=== PATIENT | female | born 1945 | race Caucasian/White ===

== ENCOUNTER → 2017-03-05 | Outpatient (CLI) | payer OTHER ==
[2014-05-08 14:30] VITALS: BP 186/81
--- NOTE | 2017-03-05 16:06 | RAD ---
Examination: Right knee, three views History: Bilateral knee pain, arthritis Findings: There is degenerative narrowing of articular compartments, especially the medial compartmen t. Marginal osteophyte is present. There is no evidence for fracture, dislocation or synovial effusio n. Impression: Osteoarthritis, especially involving the medial compartment. No acute component is identi fied. Reported By:
--- NOTE | 2017-03-05 16:09 | RAD ---
Examination: Left knee, three views History: Bilateral knee pain, arthritis. Findings: There is narrowing of patellar-femoral and medial compartments. Marginal osteophytes are pr ominent. There is no fracture or synovial effusion or osteolytic process identified. Impression: Osteoarthritis, distribution as noted. No acute features identified. Reported By:
== END ==
LOC: RAD 15:18
PROVIDERS: ATTEND Obstetrics & Gynecology Obstetrics
DX: M17.0 Bilateral primary osteoarthritis of knee (principal)
CPT/HCPCS: 73560

== ENCOUNTER 2020-10-13 04:58 | Inpatient (IN) ==
--- NOTE | 2020-10-13 05:14 | DR.SOBA ---
HPI Time Seen Time Seen by Provider: 10/13/20 05:09 HPI Comment HPI Comment: PATIENT WITH A HISTORY OF COPD, HYPERPARATHYROIDISM AND HYPOTHYROIDISM COMPLAINS OF INCREASING DYSPNEA AT REST, MARKED EXERTIONAL DYSPNEA, DENIES CHEST PAIN, DIAPHORESIS, COUGH, FEVER OR CHILLS. Complaints Chief Complaint Doctors Comments: DYSPNEA Reviewed Nurses Notes Reviewed: Yes Source History Provided: Patient Mode of Arrival Mode of Arrival: Wheelchair Duration Duration: Days Context Onset:: At Rest History of:: COPD Prehospital Care:: None PMH PMH Past Medical History: Hypothyroidism Past Surgical History: Yes ROS Review of Systems Constitutional: No Symptoms Reported Eyes: No Symptoms Reported ENTM: No Symptoms Reported Respiratoy: See HPI, Orthopnea and Short of Breath Cardiovascular: Palpitations Gastrointestinal/Abdominal: No Symptoms Reported Genitourinary: No Symptoms Reported Neurological: No Symptoms Reported Musculoskeletal: No Symptoms Reported Integumentary: No Symptoms Reported Hematologic/Lymphatic: No Symptoms Reported Endocrine: No Symptoms Reported Psychiatric: No Symptoms Reported All Other Systems: Reviewed and Negative PE Vital Signs Vitals: Temperature 97.5 F Pulse Rate 97 Respiratory Rate 14 Blood Pressure [Right Arm] 186/81 Blood Pressure [Left Arm] 164/72 Blood Pressure 149/74 O2 Sat by Pulse Oximetry 90 General Limitations: Physical Limitation General Appearance: Alert and In No Apparent Distress Head Head Exam: Normal Inspection and Atraumatic Eyes Eye exam: Normal Appearance, PERRL and EOMI Neck Neck Exam: Normal Inspection, Full ROM and Trachea Midline Chest Chest Inspection: Normal Inspection and Symmetric Chest Wall Rise Respiratory Respiratory Exam: Bilateral: Decreased Breath Sounds and Lower: Decreased Breath Sounds Cardiovascular Cardiovascular Exam: Tachycardia and Irregular Rhythm Abdominal Exam Abdominal Exam: Normal Inspection, Normal Bowel Sounds and Soft Extremities Extremities Exam: Edema (1+ ANKLE EDEMA) Back Back Exam: Normal Inspection and Full ROM Psychiatric Psychiatric Exam: Normal Affect and Normal Mood Skin Skin Exam: Warm and Dry MDM Differential Diagnosis Differential Diagnosis: CHF, COPD, Dysrhythmia and Pulmonary embolism COURSE Treatment Treatment: SALINE LOCK, PLACED ON TELEMETRY, XOPENEX 1.25MG AEROSOL, AFTER 2 SETS OF BLOOD CULTURES, ROCEPHIN 1GM IVPB, LASIX 40MG, LOPRESSOR 5MG IV, NO CHANGE IN VENTRICULAR RESPONSE ATRIAL FIBRILLATION, PLACED ON CARDIZEM 10MG IV BOLUS FOLLOWED BY INFUSION 10MG/HR Reevaluation 1st: Improved Consultation Call Returned: 07:00 Consultation Comments: FINDINGS DISCUSSED WITH DR TAPIA FOR ADMIT TO INPATIENT Critical Care Notes Total Time (mins): 30 Critical Diagnosis: NEW ONSET ATRIAL FIBRILLATION RVR Critical Interventions: IV CARDIZEM BOLUS 10MG FOLLOWED BY CARDIZEM INFUSION 10MG/HR ROR Labs Reviewed Laboratory Results Reviewed?: Yes Result Diagrams: 10/13/20 05:35 10/13/20 05:35 Laboratory: WBC 5.9 X10^3/uL (3.6-10.0) 10/13/20 05:35 RBC 4.39 X10^6/uL (3.5-5.4) 10/13/20 05:35 Hgb 12.8 g/dL (12.0-16.0) 10/13/20 05:35 Hct 37.4 % (36.0-47.0) 10/13/20 05:35 MCV 85.2 fL (80.0-100.0) 10/13/20 05:35 MCH 29.1 pg (27.0-34.0) 10/13/20 05:35 MCHC 34.2 g/dL (33.0-35.0) 10/13/20 05:35 RDW 14.0 % (11.6-16.5) 10/13/20 05:35 Plt Count 269 X10^3/uL (150.0-450.0) 10/13/20 05:35 MPV 8.2 fL (7.4-11.0) 10/13/20 05:35 Neut % (Auto) 50.0 % (42.0-75.0) 10/13/20 05:35 Lymph % (Auto) 33.4 % (21.0-51.0) 10/13/20 05:35 [place] % (Auto) 11.0 % (0.0-13.0) 10/13/20 05:35 Eos % (Auto) 4.6 % (0.9-2.9) H 10/13/20 05:35 Baso % (Auto) 1.0 % (0.2-1.0) 10/13/20 05:35 Neut # (Auto) 2.9 x10^3/uL (2.2-4.8) 10/13/20 05:35 Lymph # (Auto) 2.0 X10^3/uL (1.3-2.9) 10/13/20 05:35 [place] # (Auto) 0.6 x10^3/uL (0.3-0.8) 10/13/20 05:35 Eos # (Auto) 0.3 x10^3/uL (0.0-0.2) H 10/13/20 05:35 Baso # (Auto) 0.1 X10^3/uL (0.0-0.1) 10/13/20 05:35 Absolute Nucleated RBC 0.0 /100WBC 10/13/20 05:35 PT 14.2 SECONDS (11.8-14.3) 10/13/20 05:35 INR Target Range - 10/13/20 05:35 INR 1.16 (0.8-1.3) 10/13/20 05:35 APTT 29.9 SECONDS (22.9-36.5) 10/13/20 05:35 PTT Comment - 10/13/20 05:35 D-Dimer 10.80 ug/ml (0.0-0.57) H* 10/13/20 05:30 Sample Site Rr 10/13/20 05:04 ABG pH 7.470 (7.35-7.45) H 10/13/20 05:04 ABG pCO2 36.0 mmHg (35.0-45.0) 10/13/20 05:04 ABG pO2 57.0 mmHg (80.0-100.0) L 10/13/20 05:04 ABG HCO3 26.2 mmol/L (22-26) H 10/13/20 05:04 ABG O2 Saturation 91.0 % (90-100) 10/13/20 05:04 ABG Base Excess 2.6 mmol/L (-2.0-2.0) H 10/13/20 05:04 Sergio Test Pos 10/13/20 05:04 A-a Gradient 48.0 mmHg 10/13/20 05:04 FiO2 21.0 10/13/20 05:04 Blood Gas Comments [facility] well 10/13/20 05:04 Sodium 142 mmol/L (136-145) 10/13/20 05:35 Corrected Sodium 142 mmol/L (136-145) 10/13/20 05:35 Potassium 3.9 mmol/L (3.5-5.1) 10/13/20 05:35 Chloride 105 mmol/L (98-107) 10/13/20 05:35 Carbon Dioxide 26.9 mmol/L (21-32) 10/13/20 05:35 BUN 18 mg/dL (7-18) 10/13/20 05:35 Creatinine 0.89 mg/dL (0.55-1.02) 10/13/20 05:35 Est GFR (MDRD) Af Amer > 60 (>60) 10/13/20 05:35 Est GFR (MDRD) Non-Af > 60 (>60) 10/13/20 05:35 Glucose 117 mg/dL (65-99) H 10/13/20 05:35 Calcium 10.1 mg/dL (8.5-10.1) 10/13/20 05:35 Corrected Calcium TNP 10/13/20 05:35 Magnesium 1.6 mg/dL (1.7-2.9) L 10/13/20 05:35 Total Bilirubin 0.60 mg/dL (0.2-1.0) 10/13/20 05:35 AST 21 Units/L (15-37) 10/13/20 05:35 ALT 24 Units/L (12-78) 10/13/20 05:35 Alkaline Phosphatase 59 Units/L (46-116) 10/13/20 05:35 Troponin I < 0.02 ng/mL (0-1.5) 10/13/20 05:35 B-Natriuretic Peptide 279 pg/mL (0-79) H 10/13/20 05:35 Total Protein 7.0 g/dL (6.4-8.2) 10/13/20 05:35 Albumin 3.8 g/dL (3.4-5.0) 10/13/20 05:35 Globulin 3.2 g/dL (2.5-4.5) 10/13/20 05:35 Albumin/Globulin Ratio 1.2 Ratio (1.1-2.1) 10/13/20 05:35 SARS-CoV-2 (PCR) Negative (NEGATIVE) 10/13/20 05:30 Influenza Type A (PCR) Negative (NEGATIVE) 10/13/20 05:30 Influenza Type B (PCR) Negative (NEGATIVE) 10/13/20 05:30 RSV (PCR) Negative (NEGATIVE) 10/13/20 05:30 XRAY XRAY Interpreted by: Radiologist (THE CTA CHEST WITH INTRAVENOUS CONTRAST CONSISTENT WITH BILATERAL PULMONARY EMBOLI, NOT SADDLE TYPE WITH FINDINGS OF RIGHT HEART STRAIN) X-ray Results: PORT CHEST XRAY - CONSISTENT WITH NO ACUTE PROCESS EKG Rate: 113 Rhythm: Afib Opioid Opioid Risk Tool Total: 0 Total Score Risk Category: Low Risk Copyright: Mae SANTIAGO predicting aberrant behaviors Diagnosis Discharge Problem: Atrial fibrillation, new onset
[2020-10-13] MEDS ORDERED: ROCEPHIN 1 GRAM IV PREMIX 1 G/50 ML IV.SOLN. IV ONE ×2 (05:16→06:17)
[2020-10-13 05:26] LABS: ABG BASE EXCESS 2.6 mmol/L (-2.0-2.0); ABG HCO3 26.2 mmol/L (22-26)
[2020-10-13 05:27] LABS: ABG ALLEN TEST POS
[2020-10-13] MEDS ORDERED: XOPENEX 1.25 MG/3 ML NEBULE NEB ONE ×2 (05:34→05:52)
--- NOTE | 2020-10-13 05:39 | RAD ---
PROCEDURE: Chest X-ray 1 View .HISTORY: DYSPNEA .TECHNIQUE: AP view .COMPARISON: None .TECHNICAL QUALITY: Satisfactory .FINDINGS:Normal size heart .Mediastinum and hilar regions show no masses or lymphadenopathy .Normal central vascularity .No pulmonary consolidation, masses, pleural fluid, or pneumothorax .No acute bony abnormality .IMPRESSION:No active cardiopulmonary disease .Electronically signed by: Hardik Guerrero (Oct 13, 2020 05:37:28)
[2020-10-13 05:46] LABS: BASOPHILS # (AUTO) 0.1 X10^3/uL (0.0-0.1); EOSINOPHILS # (AUTO) 0.3 x10^3/uL (0.0-0.2); EOSINOPHILS % (AUTO) 4.6 % (0.9-2.9); HEMATOCRIT 37.4 % (36.0-47.0); HEMOGLOBIN 12.8 g/dL (12.0-16.0); LYMPHOCYTES % (AUTO) 33.4 % (21.0-51.0); MEAN CORPUSCULAR HEMOGLOBIN 29.1 pg (27.0-34.0); MEAN CORPUSCULAR HGB CONC 34.2 g/dL (33.0-35.0); MEAN CORPUSCULAR VOLUME 85.2 fL (80.0-100.0); MEAN PLATELET VOLUME 8.2 fL (7.4-11.0); MONOCYTES # (AUTO) 0.6 x10^3/uL (0.3-0.8); NEUTROPHILS # (AUTO) 2.9 x10^3/uL (2.2-4.8); PLATELET COUNT 269 X10^3/uL (150.0-450.0); RED BLOOD COUNT 4.39 X10^6/uL (3.5-5.4); WHITE BLOOD COUNT 5.9 X10^3/uL (3.6-10.0)
[2020-10-13 06:03] LABS: ALANINE AMINOTRANSFERASE 24 Units/L (12-78); ALBUMIN 3.8 g/dL (3.4-5.0); ALKALINE PHOSPHATASE 59 Units/L (46-116); ASPARTATE AMINO TRANSFERASE 21 Units/L (15-37); BLOOD UREA NITROGEN 18 mg/dL (7-18); CALCIUM 10.1 mg/dL (8.5-10.1); CARBON DIOXIDE 26.9 mmol/L (21-32); CHLORIDE 105 mmol/L (98-107); COR NA(FOR HYPERGLY) 142 mmol/L (136-145); CREATININE 0.89 mg/dL (0.55-1.02); MAGNESIUM 1.6 mg/dL (1.7-2.9); SODIUM 142 mmol/L (136-145); TROPONIN I < 0.02 ng/mL (0-1.5); eGFR NON BLACK RACES > 60 (>60)
[2020-10-13] MEDS ORDERED: LASIX IVP ONE ×2 (06:16)
[2020-10-13] MEDS ORDERED: LOPRESSOR INJ 5 MG AMP IVP ONE (06:16)
[2020-10-13] MEDS ORDERED: NS 250 ML IV 250 ML IV ONE (06:16)
[2020-10-13] MEDS ORDERED: LOPRESSOR INJ 5 MG AMP ONE (06:16)
[2020-10-13] MEDS ORDERED: LOVENOX INJ 60 MG SYR SC STA (06:30)
[2020-10-13] MEDS ORDERED: LOVENOX INJ 60 MG SYR SC ONE (06:41)
[2020-10-13] MEDS ORDERED: CARDIZEM INJ 125 MG VIAL 125 MG in NS 100 ML IV 100 ML IV PRN ×2 (06:51→07:24)
[2020-10-13] MEDS ORDERED: TOPROL XL PO STA (06:57)
[2020-10-13] MEDS ORDERED: CARDIZEM INJ 50 MG VIAL IVP ONE (07:01)
[2020-10-13] MEDS ORDERED: NS 100 ML IV 100 ML ONE (07:02)
[2020-10-13] MEDS ORDERED: CARDIZEM INJ 125 MG VIAL ONE (07:02)
[2020-10-13] MEDS ORDERED: ANTIVERT TAB 25 MG PO PRN (07:24)
--- NOTE | 2020-10-13 07:56 | CT ---
HISTORYELEVATED D-DIMERSTUDYCTA CHESTCOMPARISONChest radiograph from same day.TECHNIQUECTA chest protocol with axial images from the thoracic inlet to upper abdomen with IV contrast. Sagittal and coronal reformats and MIP images were created. Automated exposure control was utilized.FINDINGSStatus post thyroidectomy. Moderately atherosclerotic normal caliber thoracic aorta. Pulmonary emboli are present bilaterally with involvement of the distal bilateral main pulmonary arteries. For example in the distal right main pulmonary artery image 71 series 4. Emboli extend into the anterior segment of the left upper lobe, superior lingular segment, left lower lobar branch, and lateral segment of the left lower lobe. On the right emboli extend into all upper lobe segments, the medial and lateral right middle lobe segments, right interlobar pulmonary artery, and lateral segment of the right lower lobe. There is mild straightening of the interventricular septum. There is reflux of contrast into the hepatic veins. The right ventricle to left ventricle ratio is just over 2-1. The heart is mildly enlarged. No pericardial effusion. No pathologic adenopathy in the thorax. Post cholecystectomy with mild intra and extrahepatic ductal dilatation. There is a 1.1 cm left upper pole renal cyst. No acute osseous abnormality. The trachea and mainstem bronchi appear patent. No consolidation or segmental lung collapse. There are few less than 4 mm scattered pulmonary nodules such as 2 mm nodule better seen on the MIPS image in the right middle lobe image 41 series 10. mild lingular subsegmental atelectasis. No pleural effusion or pneumothorax.IMPRESSIONBilateral pulmonary emboli (not saddle type) with findings suggestive of right heart strain.Electronically signed by: Deangelo Lopez (Oct 13, 2020 07:53:54)
[2020-10-13] MEDS ORDERED: ELIQUIS PO ONE (08:13)
[2020-10-13] MEDS ORDERED: ELIQUIS ONE (08:21)
[2020-10-13 08:45] LABS: BILIRUBIN,URINE NEGATIVE (NEGATIVE); BLOOD/HEMOGLOBIN,URINE 1+ (NEGATIVE); GLUCOSE, URINE NEGATIVE (NEGATIVE); KETONES,URINE NEGATIVE (NEGATIVE); LEUKOCYTE ESTERASE ,URINE NEGATIVE (NEGATIVE); NITRITES,URINE NEGATIVE (NEGATIVE); PROTEIN,URINE NEGATIVE (NEGATIVE); UROBILINOGEN,URINE NORMAL (NORMAL)
[2020-10-13] MEDS ORDERED: LOVENOX INJ 60 MG SYR SC SCH (09:00)
[2020-10-13] MEDS ORDERED: ELIQUIS PO SCH ×2 (09:00)
[2020-10-13 09:15] LABS: APPEARANCE,URINE CLEAR (CLEAR); COLOR,URINE PALE YELLOW (YELLOW)
[2020-10-13 09:16] LABS: BACTERIA,URINE NEGATIVE /HPF (NEGATIVE); RBC,URINE 0-2 /HPF (0-3); SQUAMOUS EPITHELIAL CELL,UR NEGATIVE /HPF (NEGATIVE)
[2020-10-13] MEDS ORDERED: TOPROL XL PO ONE ×2 (09:53→10:00)
[2020-10-13] MEDS: GLUCOPHAGE XR 24-HR PO SCH (09:55)
[2020-10-13] MEDS: SYNTHROID 100 mcg TAB PO SCH ×2 (09:56→09:57)
[2020-10-13] MEDS: MAGNESIUM SULFATE 1 GRAM/100 mL PREMIX 1 GM/100 ML BAG IV PRN ×2 (13:25→16:47)
[2020-10-13] MEDS ORDERED: TENORMIN PO SCH (14:09)
[2020-10-13] MEDS: M.S. CONTIN 15 MG (EXTENDED RELEASE) PO PRN (16:30)
[2020-10-13] MEDS: MAGNESIUM SULFATE 1 GRAM/100 mL PREMIX 1 G/100 ML BAG IV SCH ×2 (20:00→21:00)
[2020-10-13] MEDS: ELIQUIS PO SCH (21:00)
[2020-10-13] MEDS: COLACE CAP 100 MG PO SCH (21:00)
[2020-10-13] MEDS: PATIENT'S HOME MEDICATION TOP SCH (22:00)
[2020-10-14] MEDS: MAGNESIUM SULFATE 1 GRAM/100 mL PREMIX 1 G/100 ML BAG IV SCH ×2 (00:23→00:24)
[2020-10-14] MEDS: M.S. CONTIN 15 MG (EXTENDED RELEASE) PO PRN ×3 (04:04→23:15)
[2020-10-14 05:11] LABS: BASOPHILS # (AUTO) 0.1 X10^3/uL (0.0-0.1); EOSINOPHILS # (AUTO) 0.3 x10^3/uL (0.0-0.2); EOSINOPHILS % (AUTO) 3.9 % (0.9-2.9); HEMATOCRIT 37.9 % (36.0-47.0); HEMOGLOBIN 13.3 g/dL (12.0-16.0); LYMPHOCYTES % (AUTO) 28.6 % (21.0-51.0); MEAN CORPUSCULAR HEMOGLOBIN 29.6 pg (27.0-34.0); MEAN CORPUSCULAR HGB CONC 35.2 g/dL (33.0-35.0); MEAN CORPUSCULAR VOLUME 84.1 fL (80.0-100.0); MEAN PLATELET VOLUME 8.6 fL (7.4-11.0); MONOCYTES # (AUTO) 0.7 x10^3/uL (0.3-0.8); MONOCYTES % (AUTO) 10.5 % (0.0-13.0); NEUTROPHILS # (AUTO) 3.9 x10^3/uL (2.2-4.8); PLATELET COUNT 299 X10^3/uL (150.0-450.0); RED BLOOD COUNT 4.51 X10^6/uL (3.5-5.4); RED CELL DISTRIBUTION WIDTH 13.8 % (11.6-16.5)
[2020-10-14 05:31] LABS: ALANINE AMINOTRANSFERASE 25 Units/L (12-78); ALBUMIN 3.7 g/dL (3.4-5.0); ALKALINE PHOSPHATASE 62 Units/L (46-116); ASPARTATE AMINO TRANSFERASE 27 Units/L (15-37); BLOOD UREA NITROGEN 10 mg/dL (7-18); CALCIUM 9.1 mg/dL (8.5-10.1); CARBON DIOXIDE 28.2 mmol/L (21-32); CHLORIDE 104 mmol/L (98-107); COR NA(FOR HYPERGLY) 143 mmol/L (136-145); CREATININE 0.71 mg/dL (0.55-1.02); MAGNESIUM 2.3 mg/dL (1.7-2.9); SODIUM 142 mmol/L (136-145); eGFR NON BLACK RACES > 60 (>60)
[2020-10-14] MEDS ORDERED: MICRO K EXTEN CAP 10 MEQ PO PRN (08:23)
[2020-10-14] MEDS ORDERED: POTASSIUM CHLORIDE LIQ 20 MEQ UDC PO PRN (08:23)
[2020-10-14] MEDS ORDERED: KLOR-CON PO PRN (08:23)
[2020-10-14] MEDS ORDERED: K-RIDER 10 MEQ/NS 100 ML 10 MEQ/100 ML BAG IV PRN (08:23)
[2020-10-14] MEDS ORDERED: POTASSIUM CHL 40 MEQ/NS 0.45% 500 ML IV PRN (08:23)
[2020-10-14] MEDS ORDERED: K-DUR TAB 20 MEQ PO PRN (08:23)
[2020-10-14] MEDS ORDERED: POTASSIUM CHL 60 MEQ/NS 0.45% 500 ML IV PRN (08:23)
[2020-10-14] MEDS ORDERED: TOPROL XL PO SCH (09:00)
[2020-10-14] MEDS ORDERED: TOPROL XL PO ONE (09:19)
[2020-10-14] MEDS: SYNTHROID 100 mcg TAB PO SCH (09:20)
[2020-10-14] MEDS: ELIQUIS PO SCH ×2 (09:22→21:00)
[2020-10-14] MEDS: TOPROL XL PO SCH (09:23)
[2020-10-14] MEDS: PATIENT'S HOME MEDICATION TOP SCH ×2 (11:04→21:00)
[2020-10-14] MEDS: GLUCOPHAGE XR 24-HR PO SCH ×2 (11:05→21:38)
[2020-10-14] MEDS ORDERED: TYLENOL 325 MG TAB PO PRN (11:09)
[2020-10-14] MEDS: COLACE CAP 100 MG PO SCH (21:00)
[2020-10-15 04:59] LABS: BASOPHILS # (AUTO) 0.1 X10^3/uL (0.0-0.1); EOSINOPHILS # (AUTO) 0.3 x10^3/uL (0.0-0.2); EOSINOPHILS % (AUTO) 4.9 % (0.9-2.9); HEMATOCRIT 39.1 % (36.0-47.0); HEMOGLOBIN 13.3 g/dL (12.0-16.0); LYMPHOCYTES # (AUTO) 2.5 X10^3/uL (1.3-2.9); LYMPHOCYTES % (AUTO) 37.2 % (21.0-51.0); MEAN CORPUSCULAR HEMOGLOBIN 29.1 pg (27.0-34.0); MEAN CORPUSCULAR HGB CONC 34.1 g/dL (33.0-35.0); MEAN CORPUSCULAR VOLUME 85.5 fL (80.0-100.0); MEAN PLATELET VOLUME 8.6 fL (7.4-11.0); MONOCYTES # (AUTO) 0.7 x10^3/uL (0.3-0.8); MONOCYTES % (AUTO) 11.1 % (0.0-13.0); NEUTROPHILS # (AUTO) 3.1 x10^3/uL (2.2-4.8); NEUTROPHILS % (AUTO) 45.8 % (42.0-75.0); PLATELET COUNT 295 X10^3/uL (150.0-450.0); RED BLOOD COUNT 4.57 X10^6/uL (3.5-5.4); RED CELL DISTRIBUTION WIDTH 13.8 % (11.6-16.5); WHITE BLOOD COUNT 6.8 X10^3/uL (3.6-10.0)
[2020-10-15 05:11] LABS: ALANINE AMINOTRANSFERASE 28 Units/L (12-78); ALBUMIN 3.5 g/dL (3.4-5.0); ALKALINE PHOSPHATASE 67 Units/L (46-116); ASPARTATE AMINO TRANSFERASE 22 Units/L (15-37); BLOOD UREA NITROGEN 8 mg/dL (7-18); CARBON DIOXIDE 28.6 mmol/L (21-32); CHLORIDE 108 mmol/L (98-107); CREATININE 0.67 mg/dL (0.55-1.02); MAGNESIUM 1.7 mg/dL (1.7-2.9); SODIUM 145 mmol/L (136-145); TOTAL PROTEIN 6.9 g/dL (6.4-8.2); eGFR NON BLACK RACES > 60 (>60)
[2020-10-15] MEDS ORDERED: TOPROL XL PO ONE ×2 (08:36→11:56)
[2020-10-15] MEDS: GLUCOPHAGE XR 24-HR PO SCH ×2 (08:39→20:05)
[2020-10-15] MEDS: TOPROL XL PO SCH (08:40)
[2020-10-15] MEDS: M.S. CONTIN 15 MG (EXTENDED RELEASE) PO PRN ×2 (08:41→20:07)
[2020-10-15] MEDS: SYNTHROID 100 mcg TAB PO SCH (08:41)
[2020-10-15] MEDS: PATIENT'S HOME MEDICATION TOP SCH ×2 (10:18→20:14)
[2020-10-15] MEDS: ELIQUIS PO SCH ×2 (10:18→20:05)
[2020-10-15] MEDS: COLACE CAP 100 MG PO SCH (20:05)
[2020-10-16 04:43] LABS: BASOPHILS # (AUTO) 0.1 X10^3/uL (0.0-0.1); BASOPHILS % (AUTO) 1.2 % (0.2-1.0); EOSINOPHILS # (AUTO) 0.4 x10^3/uL (0.0-0.2); EOSINOPHILS % (AUTO) 5.5 % (0.9-2.9); HEMATOCRIT 39.5 % (36.0-47.0); HEMOGLOBIN 13.4 g/dL (12.0-16.0); LYMPHOCYTES # (AUTO) 2.7 X10^3/uL (1.3-2.9); LYMPHOCYTES % (AUTO) 36.5 % (21.0-51.0); MEAN CORPUSCULAR HEMOGLOBIN 29.2 pg (27.0-34.0); MEAN CORPUSCULAR VOLUME 85.7 fL (80.0-100.0); MEAN PLATELET VOLUME 8.7 fL (7.4-11.0); MONOCYTES # (AUTO) 0.9 x10^3/uL (0.3-0.8); MONOCYTES % (AUTO) 11.7 % (0.0-13.0); NEUTROPHILS # (AUTO) 3.3 x10^3/uL (2.2-4.8); NEUTROPHILS % (AUTO) 45.1 % (42.0-75.0); PLATELET COUNT 297 X10^3/uL (150.0-450.0); RED BLOOD COUNT 4.61 X10^6/uL (3.5-5.4); RED CELL DISTRIBUTION WIDTH 13.7 % (11.6-16.5); WHITE BLOOD COUNT 7.4 X10^3/uL (3.6-10.0)
[2020-10-16 04:54] LABS: ALANINE AMINOTRANSFERASE 29 Units/L (12-78); ALBUMIN 3.4 g/dL (3.4-5.0); ALKALINE PHOSPHATASE 70 Units/L (46-116); ASPARTATE AMINO TRANSFERASE 29 Units/L (15-37); BLOOD UREA NITROGEN 14 mg/dL (7-18); CALCIUM 9.1 mg/dL (8.5-10.1); CARBON DIOXIDE 25.9 mmol/L (21-32); CHLORIDE 108 mmol/L (98-107); CREATININE 0.74 mg/dL (0.55-1.02); SODIUM 145 mmol/L (136-145); TOTAL PROTEIN 6.6 g/dL (6.4-8.2); eGFR NON BLACK RACES > 60 (>60)
[2020-10-16] MEDS ORDERED: LANOXIN PO STA (08:32)
[2020-10-16] MEDS ORDERED: TOPROL XL PO ONE (08:51)
[2020-10-16] MEDS: TOPROL XL PO SCH (09:08)
[2020-10-16] MEDS: GLUCOPHAGE XR 24-HR PO SCH ×2 (09:08→21:32)
[2020-10-16] MEDS: SYNTHROID 100 mcg TAB PO SCH (09:09)
[2020-10-16] MEDS: ELIQUIS PO SCH ×2 (09:09→21:32)
[2020-10-16] MEDS: PATIENT'S HOME MEDICATION TOP SCH ×2 (09:10→21:32)
[2020-10-16] MEDS: M.S. CONTIN 15 MG (EXTENDED RELEASE) PO PRN ×2 (09:10→21:00)
[2020-10-16] MEDS: MAGNESIUM SULFATE 1 GRAM/100 mL PREMIX 1 GM/100 ML BAG IV PRN ×2 (16:11→17:45)
[2020-10-16] MEDS ORDERED: LANOXIN PO ONE (20:00)
[2020-10-16] MEDS: COLACE CAP 100 MG PO SCH (21:31)
[2020-10-17] MEDS: ROXICODONE TAB 15 MG PO PRN ×3 (03:58→21:33)
[2020-10-17 05:41] LABS: BASOPHILS # (AUTO) 0.1 X10^3/uL (0.0-0.1); BASOPHILS % (AUTO) 0.9 % (0.2-1.0); EOSINOPHILS # (AUTO) 0.4 x10^3/uL (0.0-0.2); EOSINOPHILS % (AUTO) 4.8 % (0.9-2.9); HEMATOCRIT 41.9 % (36.0-47.0); HEMOGLOBIN 14.5 g/dL (12.0-16.0); LYMPHOCYTES % (AUTO) 35.9 % (21.0-51.0); MEAN CORPUSCULAR HEMOGLOBIN 29.5 pg (27.0-34.0); MEAN CORPUSCULAR HGB CONC 34.6 g/dL (33.0-35.0); MEAN CORPUSCULAR VOLUME 85.1 fL (80.0-100.0); MEAN PLATELET VOLUME 8.6 fL (7.4-11.0); MONOCYTES # (AUTO) 0.8 x10^3/uL (0.3-0.8); MONOCYTES % (AUTO) 9.9 % (0.0-13.0); NEUTROPHILS # (AUTO) 4.1 x10^3/uL (2.2-4.8); NEUTROPHILS % (AUTO) 48.5 % (42.0-75.0); PLATELET COUNT 336 X10^3/uL (150.0-450.0); RED BLOOD COUNT 4.92 X10^6/uL (3.5-5.4); RED CELL DISTRIBUTION WIDTH 13.6 % (11.6-16.5); WHITE BLOOD COUNT 8.4 X10^3/uL (3.6-10.0)
[2020-10-17 05:57] LABS: ALANINE AMINOTRANSFERASE 27 Units/L (12-78); ALBUMIN 3.7 g/dL (3.4-5.0); ALKALINE PHOSPHATASE 75 Units/L (46-116); ASPARTATE AMINO TRANSFERASE 25 Units/L (15-37); BLOOD UREA NITROGEN 16 mg/dL (7-18); CALCIUM 9.2 mg/dL (8.5-10.1); CHLORIDE 107 mmol/L (98-107); CREATININE 0.78 mg/dL (0.55-1.02); DIGOXIN 1.13 ng/mL (0.9-2); SODIUM 144 mmol/L (136-145); TOTAL PROTEIN 7.1 g/dL (6.4-8.2); eGFR NON BLACK RACES > 60 (>60)
[2020-10-17] MEDS ORDERED: TOPROL XL PO ONE (08:35)
[2020-10-17] MEDS: SYNTHROID 100 mcg TAB PO SCH (08:39)
[2020-10-17] MEDS: PATIENT'S HOME MEDICATION TOP SCH ×2 (08:39→21:32)
[2020-10-17] MEDS: GLUCOPHAGE XR 24-HR PO SCH ×2 (08:39→21:32)
[2020-10-17] MEDS: TOPROL XL PO SCH (08:40)
[2020-10-17] MEDS: ELIQUIS PO SCH ×2 (08:40→21:31)
[2020-10-17] MEDS: LANOXIN PO SCH (08:41)
[2020-10-17] MEDS ORDERED: DUONEB 0.5 MG/3 MG (3 mL) NEB ONE (08:57)
[2020-10-17] MEDS: DUONEB 0.5 MG/3 MG (3 mL) NEB SCH ×5 (09:07→20:10)
[2020-10-17] MEDS: M.S. CONTIN 15 MG (EXTENDED RELEASE) PO PRN (18:14)
[2020-10-17] MEDS: COLACE CAP 100 MG PO SCH (21:31)
[2020-10-18] MEDS: M.S. CONTIN 15 MG (EXTENDED RELEASE) PO PRN (08:09)
[2020-10-18] MEDS ORDERED: TOPROL XL PO ONE (08:23)
[2020-10-18] MEDS: LANOXIN PO SCH (08:33)
[2020-10-18] MEDS: GLUCOPHAGE XR 24-HR PO SCH ×2 (08:33→09:31)
[2020-10-18] MEDS: ELIQUIS PO SCH (08:33)
[2020-10-18] MEDS: SYNTHROID 100 mcg TAB PO SCH (08:34)
[2020-10-18] MEDS: TOPROL XL PO SCH (08:34)
[2020-10-18] MEDS: PATIENT'S HOME MEDICATION TOP SCH (08:34)
[2020-10-18] MEDS: DUONEB 0.5 MG/3 MG (3 mL) NEB SCH ×2 (09:04→14:30)
[2020-10-18 14:29] VITALS: BP 124/68
== END 2020-10-18 14:25 | disposition home health service (06) | DRG 308 ==
LOC: ER 04:59 → ICU 08:21
PROVIDERS: ADMIT Obstetrics & Gynecology Obstetrics; ATTEND Obstetrics & Gynecology Obstetrics
DX: R06.02 Shortness of breath; Z20.822 Contact with and (suspected) exposure to COVID-19; E87.6 Hypokalemia; R94.31 Abnormal electrocardiogram [ECG] [EKG]; I48.91 Unspecified atrial fibrillation; R79.82 Elevated C-reactive protein (CRP); E03.8 Other specified hypothyroidism; R26.89 Other abnormalities of gait and mobility; I26.99 Other pulmonary embolism without acute cor pulmonale

== ENCOUNTER 2022-03-24 07:31 | Observation (INO) ==
[2022-03-24 07:48] VITALS: BMI 29.2
[2022-03-24 08:24] LABS: BASOPHILS # (AUTO) 0.1 X10^3/uL (0.0-0.1); HEMOGLOBIN 13.6 g/dL (12.0-16.0); MEAN CORPUSCULAR HGB CONC 33.7 g/dL (33.0-35.0)
[2022-03-24 08:32] LABS: ALANINE AMINOTRANSFERASE 84 Units/L (12-78); ALBUMIN 4.1 g/dL (3.4-5.0); ALKALINE PHOSPHATASE 158 Units/L (46-116); ASPARTATE AMINO TRANSFERASE 37 Units/L (15-37); BLOOD UREA NITROGEN 29 mg/dL (7-18); CALCIUM 9.4 mg/dL (8.5-10.1); CARBON DIOXIDE 27.9 mmol/L (21-32); CHLORIDE 99 mmol/L (98-107); COR NA(FOR HYPERGLY) 139 mmol/L (136-145); CREATININE 0.98 mg/dL (0.55-1.02); SODIUM 137 mmol/L (136-145); eGFR NON BLACK RACES 58 (>60)
[2022-03-24 08:37] LABS: BASOPHILS % (AUTO) 0.4 % (0.2-1.0); EOSINOPHILS # (AUTO) 0.2 x10^3/uL (0.0-0.2); EOSINOPHILS % (AUTO) 1.1 % (0.9-2.9); HEMATOCRIT 40.4 % (36.0-47.0); LYMPHOCYTES # (AUTO) 1.3 X10^3/uL (1.3-2.9); LYMPHOCYTES % (AUTO) 8.2 % (21.0-51.0); MEAN CORPUSCULAR HEMOGLOBIN 29.6 pg (27.0-34.0); MEAN CORPUSCULAR VOLUME 87.7 fL (80.0-100.0); MEAN PLATELET VOLUME 8.7 fL (7.4-11.0); MONOCYTES # (AUTO) 0.8 x10^3/uL (0.3-0.8); MONOCYTES % (AUTO) 5.1 % (0.0-13.0); NEUTROPHILS # (AUTO) 13.9 x10^3/uL (2.2-4.8); NEUTROPHILS % (AUTO) 85.2 % (42.0-75.0); RED CELL DISTRIBUTION WIDTH 13.9 % (11.6-16.5); WHITE BLOOD COUNT 16.3 X10^3/uL (3.6-10.0)
--- NOTE | 2022-03-24 08:37 | DR.FEVERAD ---
HPI Time seen Time Seen by Provider: 03/24/22 08:34 PCP Primary Care Physician: DR TAPIA Complaints/Symptoms Chief Complaint:: PT C/O SLIGHT ODOR TO URINE FOR THE PAST SEVERAL DAYS ASSOCIATED WITH MILD INTERMITTNET DULL PAIN INTO THE PELVIC AREA. PT WOKE UP THIS MORNING AND HAD FEVER OF 102. PT'S FAMILY SAYS THAT WHEN SHE WOKE UP SHE WAS SLIGHTLY CONFUSED BUT HER MENTAL STATUS IS RETURNING TO BASELINE BY TIME OF TRIAGE Self Treatment fo Chief Complaint: PT RECEIVED TYLENOL 1000 MG PO AT 0630 COVID-19 Coronavirus risk:travel/contact w/high risk person: No Has patient experienced Coronavirus symptoms: No Nurses notes reviewed Nurses Notes Review: Yes Source History Provided: Patient Mode of Arrival Mode of Arrival: Wheelchair Timing Onset of Chief Complaint: 03/24/22 PMH PMH Past Medical History: Yes Past Medical History: COPD, Diabetes, GERD and Hypothyroidism Past Medical History Comment: AFIB, CHRONIC PAIN Past Surgical History: Yes Surgical History: Cholecystectomy Past Surgical History Comment: PARATHYROID SURGERY Family History History of Family Medical Conditions: No Social History Does patient currently use any type of tobacco product: No Have you used tobacco products in the last 12 months: No Type of Tobacco Use: None Does any household member use tobacco: No Alcohol Use: None Do you use any recreational Drugs:: No Lives With: Family Lives Where: Home Travel Risk Coronavirus risk:travel/contact w/high risk person: No Has patient experienced Coronavirus symptoms: No Infectious screening In the last 2 months have you had wt loss of >10#?: NO Have you had fever, night sweats or hemotysis?: No Have you traveled outside the country in the last 6 months?: No Isolation: Standard PE Vital Signs Vitals: Temperature 100.2 F Pulse Rate 94 Respiratory Rate 15 Blood Pressure [Right Arm] 186/81 Blood Pressure [Left Arm] 164/72 Blood Pressure 151/82 O2 Sat by Pulse Oximetry 96 ROR Labs Reviewed Result Diagrams: 03/24/22 08:07 03/24/22 08:07 Laboratory: WBC 16.3 X10^3/uL (3.6-10.0) H 03/24/22 08:07 RBC 4.60 X10^6/uL (3.5-5.4) 03/24/22 08:07 Hgb 13.6 g/dL (12.0-16.0) 03/24/22 08:07 Hct 40.4 % (36.0-47.0) 03/24/22 08:07 MCV 87.7 fL (80.0-100.0) 03/24/22 08:07 MCH 29.6 pg (27.0-34.0) 03/24/22 08:07 MCHC 33.7 g/dL (33.0-35.0) 03/24/22 08:07 RDW 13.9 % (11.6-16.5) 03/24/22 08:07 Plt Count 247 X10^3/uL (150.0-450.0) 03/24/22 08:07 MPV 8.7 fL (7.4-11.0) 03/24/22 08:07 Neut % (Auto) 85.2 % (42.0-75.0) H 03/24/22 08:07 Lymph % (Auto) 8.2 % (21.0-51.0) L 03/24/22 08:07 [place] % (Auto) 5.1 % (0.0-13.0) 03/24/22 08:07 Eos % (Auto) 1.1 % (0.9-2.9) 03/24/22 08:07 Baso % (Auto) 0.4 % (0.2-1.0) 03/24/22 08:07 Neut # (Auto) 13.9 x10^3/uL (2.2-4.8) H 03/24/22 08:07 Lymph # (Auto) 1.3 X10^3/uL (1.3-2.9) 03/24/22 08:07 [place] # (Auto) 0.8 x10^3/uL (0.3-0.8) 03/24/22 08:07 Eos # (Auto) 0.2 x10^3/uL (0.0-0.2) 03/24/22 08:07 Baso # (Auto) 0.1 X10^3/uL (0.0-0.1) 03/24/22 08:07 Absolute Nucleated RBC 0.0 /100WBC 03/24/22 08:07 PT 14.4 SECONDS (11.8-14.3) 03/24/22 08:07 INR Target Range - 12/10/22 08:07 INR 1.16 (0.8-1.3) 03/24/22 08:07 APTT 27.7 SECONDS (22.9-36.5) 03/24/22 08:07 PTT Comment - 03/24/22 08:07 Sodium 137 mmol/L (136-145) 03/24/22 08:07 Corrected Sodium 139 mmol/L (136-145) 03/24/22 08:07 Potassium 4.2 mmol/L (3.5-5.1) 03/24/22 08:07 Chloride 99 mmol/L (98-107) 03/24/22 08:07 Carbon Dioxide 27.9 mmol/L (21-32) 03/24/22 08:07 BUN 29 mg/dL (7-18) H 03/24/22 08:07 Creatinine 0.98 mg/dL (0.55-1.02) 03/24/22 08:07 Est GFR (MDRD) Af Amer > 60 (>60) 03/24/22 08:07 Est GFR (MDRD) Non-Af 58 (>60) L 03/24/22 08:07 Glucose 164 mg/dL (65-99) H 03/24/22 08:07 Lactic Acid 1.8 mmol/L (0.4-2.0) 03/24/22 11:10 Calcium 9.4 mg/dL (8.5-10.1) 03/24/22 08:07 Corrected Calcium TNP 03/24/22 08:07 Total Bilirubin 0.50 mg/dL (0.2-1.0) 03/24/22 08:07 AST 37 Units/L (15-37) 03/24/22 08:07 ALT 84 Units/L (12-78) H 03/24/22 08:07 Alkaline Phosphatase 158 Units/L (46-116) H 03/24/22 08:07 Creatine Kinase 39 Units/L (26-192) 03/24/22 08:07 Troponin I High Sens 9.5 ng/L (4.0-60.0) 03/24/22 08:07 Total Protein 8.0 g/dL (6.4-8.2) 03/24/22 08:07 Albumin 4.1 g/dL (3.4-5.0) 03/24/22 08:07 Globulin 3.9 g/dL (2.5-4.5) 03/24/22 08:07 Albumin/Globulin Ratio 1.1 Ratio (1.1-2.1) 03/24/22 08:07 Specimen Type Clean catch urine 03/24/22 09:15 Urine Color Yellow (YELLOW) 03/24/22 09:15 Urine Appearance Slightly hazy (CLEAR) 03/24/22 09:15 Urine pH 5.0 (5.0 - 8.0) 03/24/22 09:15 Ur Specific [place] 1.020 (1.000-1.030) 03/24/22 09:15 Urine Protein 1+ (NEGATIVE) 03/24/22 09:15 Urine Glucose (UA) Negative (NEGATIVE) 03/24/22 09:15 Urine Ketones Negative (NEGATIVE) 03/24/22 09:15 Urine Blood 2+ (NEGATIVE) 03/24/22 09:15 Urine Nitrite Negative (NEGATIVE) 03/24/22 09:15 Urine Bilirubin Negative (NEGATIVE) 03/24/22 09:15 Urine Urobilinogen Normal (NORMAL) 03/24/22 09:15 Ur Leukocyte Esterase 3+ (NEGATIVE) 03/24/22 09:15 Urine RBC 3-5 /HPF (0-3) A 03/24/22 09:15 Urine WBC 3-5 /HPF (0-5) 03/24/22 09:15 Ur Squamous Epith Cells Moderate /HPF (NEGATIVE) 03/24/22 09:15 Urine Bacteria Trace /HPF (NEGATIVE) 03/24/22 09:15 Ur Culture Indicated? No/not indicated 03/24/22 09:15 SARS-CoV-2 (PCR) Negative (NEGATIVE) 03/24/22 08:05 Influenza Type A (PCR) Negative (NEGATIVE) 03/24/22 08:05 Influenza Type B (PCR) Negative (NEGATIVE) 03/24/22 08:05 RSV (PCR) Negative (NEGATIVE) 03/24/22 08:05 Opioid Opioid Risk Tool Age ([place] if 16-45): No History of Preadolescent Sexual Abuse: No Total: 0 Total Score Risk Category: Low Risk Copyright: Tu HENDERSON predicting aberrant behaviors Discharge Plan Diagnosis Discharge Problem: Altered mental status, UTI (urinary tract infection), Atrial fibrillation with controlled ventricular rate Discharge Plan Patient Disposition: ADMITTED INPATIENT Condition: Stable Prescriptions: No Action metformin 500 mg Tablet Extended Release 24 Hr 1,000 mg PO BID metoprolol succinate 200 mg tablet extended release 24 hr 200 mg PO DAILY Qty: 30 4RF Eliquis 2.5 mg Tablet 2.5 mg PO BID Health Concerns: Post Hospitalization: new medications and changes needed to prevent readmission or further decline. Pt educated and given instructions on all concerns. Plan of Treatment: Continue with present treatment and follow up plan. Pt is to keep follow up appointment as instructed and take medications as ordered. Orders to Discharge Patient Discharge Orders: Transfer (Routine); Ordered 03/24/22 Ordered By: NESS GO Follow ups/Referrals Follow ups/Referrals: GEORGIE TAPIA [Primary Care Provider] - 3 days
--- NOTE | 2022-03-24 08:48 | EKG ---
Test Reason : a fib, tachycardia Blood Pressure : */* mmHG Vent. Rate : 98 BPM Atrial Rate : * BPM P-R Int : * ms QRS Dur : 74 ms QT Int : 336 ms P-R-T Axes : * 10 146 degrees QTc Int : 428 ms Atrial fibrillation Nonspecific ST and T wave abnormality Abnormal ECG No previous ECGs available Confirmed by Marino Almanza ([id number]) on 03/27/2022 8:55:24 AM Referred By: Confirmed By: Marino Almanza
[2022-03-24 09:21] LABS: BILIRUBIN,URINE NEGATIVE (NEGATIVE); BLOOD/HEMOGLOBIN,URINE 2+ (NEGATIVE); GLUCOSE, URINE NEGATIVE (NEGATIVE); KETONES,URINE NEGATIVE (NEGATIVE); LEUKOCYTE ESTERASE ,URINE 3+ (NEGATIVE); NITRITES,URINE NEGATIVE (NEGATIVE); PROTEIN,URINE 1+ (NEGATIVE); UROBILINOGEN,URINE NORMAL (NORMAL)
[2022-03-24 09:26] LABS: APPEARANCE,URINE SLIGHTLY HAZY (CLEAR); COLOR,URINE YELLOW (YELLOW)
[2022-03-24 09:36] LABS: BACTERIA,URINE TRACE /HPF (NEGATIVE); SQUAMOUS EPITHELIAL CELL,UR MODERATE /HPF (NEGATIVE)
--- NOTE | 2022-03-24 11:02 | CT ---
HISTORY: Altered mental statusNoncontrast head CT examination.Comparison: [None].Technique:Multiple axial images of the brain were obtained from the skull base to the vertex without administration of IV contrast.Findings: There is moderate sulcal and cisternal prominence as well as atherosclerotic change in the proximal intracranial carotid and vertebral arteries, which is not out of proportion to the patient's stated age. There is diffuse CT density alteration seen in the periventricular white matter of the high and mid-convexity, which is likely in the setting of small vessel disease and not out of proportion to the patient's stated age. There is [mild bilateral ex vacuo] ventricular dilatation without evidence for hydrocephalus or herniation syndrome. No midline shift is evident. No acute intraparenchymal hemorrhage or mass can be identified. If there remains a strong concern for any intra-cranial neoplasm, then follow-up with CT or MR imaging of the brain would be more sensitive to exclude any intra-cranial mass lesion. No extra-axial fluid collections are seen. No alteration in the attenuation of the brain parenchyma can be identified to suggest acute or subacute ischemic change. However, if clinical symptoms are concerning for an acute CVA, then follow-up MRI with DWI sequencing is recommended. The extracranial structures [are unremarkable]. The paranasal sinuses and mastoid air cells are relatively clear on this exam.IMPRESSION:1. No acute intracranial process or acute bleed identified.2. Age-appropriate intra-cranial changes of advancing age.Electronically signed by: MANDIE CAMACHO III (Mar 24, 2022 11:00:38)
[2022-03-24] MEDS ORDERED: NS 1,000 ML IV 1,000 ML ONE (11:03)
[2022-03-24] MEDS ORDERED: NS 100 ML IV 100 ML ONE (11:05)
[2022-03-24] MEDS ORDERED: ROCEPHIN VIAL 1 GRAM 1 G in NS 100 ML IV 100 ML IV ONE (11:05)
[2022-03-24] MEDS ORDERED: ROCEPHIN VIAL 1 GRAM ONE (11:05)
[2022-03-24 11:09] LABS: INR 1.16 (0.8-1.3)
[2022-03-24] MEDS: NS 1,000 ML IV 1,000 ML IV SCH ×2 (11:15→12:52)
--- NOTE | 2022-03-24 13:56 | EKG ---
Test Reason : afib Blood Pressure : */* mmHG Vent. Rate : 91 BPM Atrial Rate : * BPM P-R Int : * ms QRS Dur : 80 ms QT Int : 338 ms P-R-T Axes : * 11 118 degrees QTc Int : 415 ms Atrial fibrillation Possible Anterior infarct , age undetermined Abnormal ECG When compared with ECG of 24-MAR-2022 08:47, (Unconfirmed) No significant change was found Confirmed by Marino Almanza ([id number]) on 03/27/2022 8:55:19 AM Referred By: Confirmed By: Marino Almanza
[2022-03-24] MEDS: GLUCOPHAGE XR 24-HR PO SCH ×2 (14:55→21:12)
[2022-03-24] MEDS: ELIQUIS PO SCH ×2 (14:55→21:11)
[2022-03-24] MEDS ORDERED: TYLENOL 325 MG TAB PO PRN (17:30)
--- NOTE | 2022-03-24 18:22 | RAD ---
STUDY: FRONTAL VIEW CHESTCOMPARISON: October 13, 2020HISTORY: shortness of breath/feverFINDINGS:No focal consolidation is seen.The heart size is magnified on this portable technique and without radiographic evidence of pulmonary edema.The mediastinum is unremarkable.There is no evidence of pleural effusion or gross pneumothorax.The trachea is midline.IMPRESSION:1. No focal consolidation is seen.Electronically signed by: Jacek Friend (Mar 24, 2022 18:20:28)
--- NOTE | 2022-03-24 19:59 | EKG ---
Test Reason : AFIB Blood Pressure : */* mmHG Vent. Rate : 94 BPM Atrial Rate : * BPM P-R Int : * ms QRS Dur : 80 ms QT Int : 358 ms P-R-T Axes : * 12 122 degrees QTc Int : 447 ms Atrial fibrillation Nonspecific ST and T wave abnormality Abnormal ECG When compared with ECG of 24-MAR-2022 13:49, (Unconfirmed) Nonspecific T wave abnormality, improved in Lateral leads Confirmed by Marino Almanza ([id number]) on 03/27/2022 8:54:02 AM Referred By: Confirmed By: Marino Almanza
[2022-03-24] MEDS ORDERED: ELIQUIS PO SCH (21:00)
[2022-03-24] MEDS: NORCO 5/325 MG TAB PO PRN (23:41)
[2022-03-25] MEDS: NS 1,000 ML IV 1,000 ML IV SCH ×3 (04:11→14:28)
[2022-03-25 06:05] LABS: BASOPHILS % (AUTO) 0.4 % (0.2-1.0); EOSINOPHILS # (AUTO) 0.2 x10^3/uL (0.0-0.2); EOSINOPHILS % (AUTO) 1.6 % (0.9-2.9); HEMATOCRIT 35.3 % (36.0-47.0); LYMPHOCYTES # (AUTO) 1.8 X10^3/uL (1.3-2.9); LYMPHOCYTES % (AUTO) 18.1 % (21.0-51.0); MEAN CORPUSCULAR HEMOGLOBIN 29.4 pg (27.0-34.0); MEAN CORPUSCULAR HGB CONC 33.9 g/dL (33.0-35.0); MEAN CORPUSCULAR VOLUME 86.9 fL (80.0-100.0); MEAN PLATELET VOLUME 8.3 fL (7.4-11.0); MONOCYTES # (AUTO) 0.9 x10^3/uL (0.3-0.8); MONOCYTES % (AUTO) 8.8 % (0.0-13.0); NEUTROPHILS % (AUTO) 71.1 % (42.0-75.0); RED BLOOD COUNT 4.06 X10^6/uL (3.5-5.4); RED CELL DISTRIBUTION WIDTH 14.3 % (11.6-16.5); WHITE BLOOD COUNT 9.8 X10^3/uL (3.6-10.0)
[2022-03-25 06:24] LABS: ALANINE AMINOTRANSFERASE 52 Units/L (12-78); ALBUMIN 3.2 g/dL (3.4-5.0); ALKALINE PHOSPHATASE 109 Units/L (46-116); ASPARTATE AMINO TRANSFERASE 17 Units/L (15-37); BLOOD UREA NITROGEN 19 mg/dL (7-18); CALCIUM 8.5 mg/dL (8.5-10.1); CHLORIDE 106 mmol/L (98-107); COR CA(FOR HYPOALB) 9.1 mg/dL (8.5-10.1); COR NA(FOR HYPERGLY) 141 mmol/L (136-145); CREATININE 0.63 mg/dL (0.55-1.02); MAGNESIUM 1.7 mg/dL (2.0-2.9); SODIUM 141 mmol/L (136-145); TOTAL PROTEIN 6.6 g/dL (6.4-8.2); eGFR NON BLACK RACES > 60 (>60)
[2022-03-25] MEDS ORDERED: KLOR-CON PO PRN (06:39)
[2022-03-25] MEDS ORDERED: POTASSIUM CHLORIDE LIQ 20 MEQ UDC PO PRN (06:39)
[2022-03-25] MEDS ORDERED: K-DUR TAB 20 MEQ PO PRN (06:39)
[2022-03-25] MEDS ORDERED: MICRO K EXTEN CAP 10 MEQ PO PRN (06:39)
[2022-03-25] MEDS ORDERED: POTASSIUM CHL 60 MEQ/NS 0.45% 500 ML IV PRN (06:39)
[2022-03-25] MEDS ORDERED: POTASSIUM CHL 40 MEQ/NS 0.45% 500 ML IV PRN (06:39)
[2022-03-25] MEDS ORDERED: K-RIDER 10 MEQ/NS 100 ML 10 MEQ/100 ML BAG IV PRN (06:39)
[2022-03-25] MEDS ORDERED: TOPROL XL PO ONE (08:02)
[2022-03-25] MEDS: GLUCOPHAGE XR 24-HR PO SCH ×2 (08:18→21:15)
[2022-03-25] MEDS: TOPROL XL PO SCH (08:18)
[2022-03-25] MEDS: ELIQUIS PO SCH ×2 (08:18→21:15)
[2022-03-25] MEDS: NORCO 5/325 MG TAB PO PRN ×2 (08:19→15:26)
[2022-03-25] MEDS: ROCEPHIN VIAL 1 GRAM 1 G in NS 100 ML IV 100 ML IV SCH (08:20)
[2022-03-25] MEDS: MAGNESIUM SULFATE 1 GRAM/100 mL PREMIX 1 G/100 ML BAG IV PRN ×2 (08:21→10:29)
[2022-03-25] MEDS ORDERED: ZOFRAN INJ 4 MG VIAL IVP PRN (18:03)
[2022-03-25] MEDS ORDERED: ZOFRAN INJ 4 MG VIAL ONE (18:19)
[2022-03-26] MEDS: NORCO 5/325 MG TAB PO PRN (01:26)
[2022-03-26 05:24] LABS: BASOPHILS # (AUTO) 0.1 X10^3/uL (0.0-0.1); BASOPHILS % (AUTO) 0.6 % (0.2-1.0); EOSINOPHILS # (AUTO) 0.2 x10^3/uL (0.0-0.2); EOSINOPHILS % (AUTO) 2.4 % (0.9-2.9); HEMATOCRIT 34.6 % (36.0-47.0); HEMOGLOBIN 11.7 g/dL (12.0-16.0); LYMPHOCYTES % (AUTO) 21.8 % (21.0-51.0); MEAN CORPUSCULAR HEMOGLOBIN 29.6 pg (27.0-34.0); MEAN CORPUSCULAR HGB CONC 33.9 g/dL (33.0-35.0); MEAN CORPUSCULAR VOLUME 87.5 fL (80.0-100.0); MEAN PLATELET VOLUME 8.6 fL (7.4-11.0); MONOCYTES # (AUTO) 0.8 x10^3/uL (0.3-0.8); MONOCYTES % (AUTO) 9.4 % (0.0-13.0); NEUTROPHILS # (AUTO) 5.9 x10^3/uL (2.2-4.8); NEUTROPHILS % (AUTO) 65.8 % (42.0-75.0); RED BLOOD COUNT 3.96 X10^6/uL (3.5-5.4); RED CELL DISTRIBUTION WIDTH 14.1 % (11.6-16.5)
[2022-03-26 05:39] LABS: ALANINE AMINOTRANSFERASE 43 Units/L (12-78); ALBUMIN 3.1 g/dL (3.4-5.0); ALKALINE PHOSPHATASE 112 Units/L (46-116); ASPARTATE AMINO TRANSFERASE 17 Units/L (15-37); BLOOD UREA NITROGEN 23 mg/dL (7-18); CALCIUM 8.4 mg/dL (8.5-10.1); CARBON DIOXIDE 29.8 mmol/L (21-32); CHLORIDE 105 mmol/L (98-107); COR CA(FOR HYPOALB) 9.1 mg/dL (8.5-10.1); CREATININE 0.72 mg/dL (0.55-1.02); MAGNESIUM 1.9 mg/dL (2.0-2.9); SODIUM 140 mmol/L (136-145); TOTAL PROTEIN 6.7 g/dL (6.4-8.2); eGFR NON BLACK RACES > 60 (>60)
[2022-03-26] MEDS ORDERED: TOPROL XL PO ONE (08:01)
[2022-03-26] MEDS: NS 1,000 ML IV 1,000 ML IV SCH (08:56)
[2022-03-26] MEDS: ROCEPHIN VIAL 1 GRAM 1 G in NS 100 ML IV 100 ML IV SCH (08:57)
[2022-03-26] MEDS: ELIQUIS PO SCH (08:57)
[2022-03-26] MEDS: TOPROL XL PO SCH (08:57)
[2022-03-26] MEDS: GLUCOPHAGE XR 24-HR PO SCH (08:58)
[2022-03-26 12:31] VITALS: BP 128/67
== END 2022-03-26 13:30 | disposition home health service (06) ==
LOC: ER 07:31 → MED/SURG 07:31
PROVIDERS: ADMIT Obstetrics & Gynecology Obstetrics; ATTEND Obstetrics & Gynecology Obstetrics
DX: K21.9 Gastro-esophageal reflux disease without esophagitis; E86.0 Dehydration; N39.0 Urinary tract infection, site not specified; I48.91 Unspecified atrial fibrillation; Z79.01 Long term (current) use of anticoagulants; J44.9 Chronic obstructive pulmonary disease, unspecified; E03.8 Other specified hypothyroidism; R06.02 Shortness of breath; Z20.822 Contact with and (suspected) exposure to COVID-19; R94.31 Abnormal electrocardiogram [ECG] [EKG]; E11.65 Type 2 diabetes mellitus with hyperglycemia; R26.89 Other abnormalities of gait and mobility; R41.82 Altered mental status, unspecified; R41.841 Cognitive communication deficit